=== PATIENT | female | born 1940 | race Caucasian/White ===

== ENCOUNTER → 2016-07-16 | Outpatient (CLI) | payer MEDICARE, OTHER ==
[2014-09-17 14:11] VITALS: BP 148/68
[~2016-07-16] MED LIST: ASPI-482 PO; CARV12.52 PO; CARV25TA2 PO; CEFU500T46 PO; EZET10TA18 PO; LIDO700A4 TP; LISI-334 PO; METR250T PO; MULT-208 PO; OMEP20CA5 PO; PARO20TA99 PO; POTA10TA31 PO; TORS20TA2 PO; UBID100T5 PO
[2016-07-16 09:48] LABS: CALCIUM 9.3 mg/dL (8.5-10.1); CREATININE 0.9 mg/dL (0.6-1.0); GFR 60.7; POTASSIUM 4.5 mmol/L (3.5-5.1)
[2016-07-16 09:49] LABS: MAGNESIUM 1.5 mg/dL (1.8-2.4)
== END | disposition home or self-care (01) ==
LOC: LAB 09:06
PROVIDERS: ATTEND Internal Medicine Cardiovascular Disease
DX: I49.3 Ventricular premature depolarization (principal); E78.5 Hyperlipidemia, unspecified
CPT/HCPCS: 36415; 80048; 83735

== ENCOUNTER → 2017-01-21 | Outpatient (CLI) | payer MEDICARE, OTHER ==
[2014-09-17 14:11] VITALS: BP 148/68
[2017-01-21 10:45] LABS: GFR 53.8; MAGNESIUM 1.6 mg/dL (1.8-2.4); POTASSIUM 4.3 mmol/L (3.5-5.1)
== END | disposition home or self-care (01) ==
LOC: LAB 08:58
PROVIDERS: ATTEND Internal Medicine Cardiovascular Disease
DX: I49.3 Ventricular premature depolarization (principal); I13.0 Hypertensive heart and chronic kidney disease with heart failure and stage 1 through stage 4 chronic kidney disease, or unspecified chronic kidney disease; N18.9 Chronic kidney disease, unspecified; I50.9 Heart failure, unspecified
CPT/HCPCS: 36415; 80048; 83735

== ENCOUNTER → 2017-01-28 | Outpatient (CLI) | payer MEDICARE, OTHER ==
[2014-09-17 14:11] VITALS: BP 148/68
[2017-01-28 12:08] LABS: CALCIUM 8.7 mg/dL (8.5-10.1); CREATININE 0.9 mg/dL (0.6-1.0); GFR 60.7; MAGNESIUM 1.3 mg/dL (1.8-2.4); POTASSIUM 4.4 mmol/L (3.5-5.1)
== END | disposition home or self-care (01) ==
LOC: LAB 11:11
PROVIDERS: ATTEND Internal Medicine
DX: K52.9 Noninfective gastroenteritis and colitis, unspecified (principal); I49.3 Ventricular premature depolarization; I10 Essential (primary) hypertension
CPT/HCPCS: 36415; 80048; 83735

== ENCOUNTER 2017-10-10 11:06 | Emergency (ER) | payer MEDICARE, OTHER ==
[~2017-10-10] VITALS: Ht 162.6 cm; Wt 81.6 kg
[2017-10-10] MEDS ORDERED: BETA15CR5 TP (11:28)
[2017-10-10] MEDS ORDERED: HYDR25TA PO (11:28)
[2017-10-10] MEDS ORDERED: METH4TAB2 PO (11:28)
--- NOTE | 2017-10-10 11:28 | PHYS DOC ---
Past History Past Medical History: GERD, High Cholesterol, Heart Disease, Hypertension, Renal Failure Past Surgical History: Appendectomy, Cholecystectomy, Hysterectomy Smoking: Non-smoker Alcohol Use: None Drug Use: None Adult General Chief Complaint Chief Complaint: Rash HPI HPI Patient is a 77 year old [sex] who presents with draining of rash. Patient states she has had pruritic rash on her face and earache and arms and under breast for the last 8 days that does not getting better with using over-the- counter medication. She denies fever and chills, shortness of breath, history of the same rash, starting new medication. Patient had the same rash on his upper extremity and both of them worked at their yard 8 days ago. Review of Systems Review of Systems Constitutional: Denies fever or chills [] Eyes: Denies change in visual acuity, redness, or eye pain [] HENT: Denies nasal congestion or sore throat [] Respiratory: Denies cough or shortness of breath [] Cardiovascular: No additional information not addressed in HPI [] GI: Denies abdominal pain, nausea, vomiting, bloody stools or diarrhea [] : Denies dysuria or hematuria [] Musculoskeletal: Denies back pain or joint pain [] Integument: Denies skin lesions, reports rash with itching [] Neurologic: Denies headache, focal weakness or sensory changes [] Endocrine: Denies polyuria or polydipsia [] All other systems were reviewed and found to be within normal limits, except as documented in this note. Allergies Allergies Allergies Coded Allergies Type Severity Reaction Last Updated Verified Smucbrz-Lle-Hyn Reductase Inhibitor Allergy Intermediate 09/12/14 Yes Sulfa (Sulfonamide Antibiotics) Allergy Mild hives 09/11/14 Yes Physical Exam Physical Exam Constitutional: Well developed, well nourished, mild distress, non-toxic appearance. [] HENT: Normocephalic, atraumatic, bilateral external ears normal, oropharynx moist, no oral exudates, nose normal. [] Eyes: PERRLA, EOMI, conjunctiva normal, no discharge. [] Neck: Normal range of motion, no tenderness, supple, no stridor. [] Cardiovascular:Heart rate regular rhythm, no murmur [] Lungs & Thorax: Bilateral breath sounds clear to auscultation [] Skin: Warm, dry. Erythematous rash in right side of face and neck and bilateral arms with 2 small spots under bilateral breast Back: No tenderness, no CVA tenderness. [] Extremities: No tenderness, no cyanosis, no clubbing, ROM intact, no edema. [] Neurologic: Alert and oriented X 3, normal motor function, normal sensory function, no focal deficits noted. [] Psychologic: Affect normal, judgement normal, mood normal. [] EKG EKG [] Radiology/Procedures Radiology/Procedures [] Course & Med Decision Making Course & Med Decision Making Evaluation of patient in ER showed 77-year-old female patient with contact dermatitis rash on her face, neck, upper extremities and trunk for 8 days after working at her yard. Patient treated with Solu-Medrol in ER and prescription for betamethasone ointment, Medrol Dosepak and hydroxyzine was given. Dragon Disclaimer Dragon Disclaimer This electronic medical record was generated, in whole or in part, using a voice recognition dictation system. Departure Departure: Impression: Primary Impression: Contact dermatitis due to poison violette Disposition: HOME, SELF-CARE (at 1125) Condition: STABLE Referrals: ANGELA VITALE (PCP) Patient Instructions: Poison Violette Additional Instructions: Follow-up with your primary care physician in 3-5 days Return to ER if not getting better Scripts Betamethasone Dipropionate (BETAMETHASONE DIPROPIONATE) 15 Gm Cream..g. 1 SURINDER TP BID, #45 GM 1 Refill Prov: OZZY VIVAS MD 10/10/17 Hydroxyzine Hcl (HYDROXYZINE HCL) 25 Mg Tablet 1 TAB PO TID PRN for ITCHING, #30 TAB Prov: OZZY VIVAS MD 10/10/17 Methylprednisolone (MEDROL) 4 Mg Tab.ds.pk 1 PKG PO UD, #1 PKG Prov: OZZY VIVAS MD 10/10/17 OZZY VIVAS MD Oct 10, 2017 11:28
[2017-10-10 11:50] VITALS: BP 110/48
[2017-10-10] MEDS ORDERED: methylPREDNISolone SOD SUCC PF 125 MG/2 ML VIAL. IM ONE (12:00)
== END 2017-10-10 11:50 | disposition home or self-care (01) ==
LOC: ER 11:06
DX: L25.5 Unspecified contact dermatitis due to plants, except food (principal); K21.9 Gastro-esophageal reflux disease without esophagitis; E78.00 Pure hypercholesterolemia, unspecified; I11.9 Hypertensive heart disease without heart failure; N19 Unspecified kidney failure; Z88.2 Allergy status to sulfonamides; Z88.8 Allergy status to other drugs, medicaments and biological substances
CPT/HCPCS: 96372; 99283; J2930

== ENCOUNTER → 2017-12-02 | Outpatient (CLI) | payer MEDICARE, OTHER ==
[~2017-12-02] MED LIST changes: +BETA15CR5 TP; +HYDR25TA PO; +METH4TAB2 PO
[2017-12-02 11:31] LABS: BASO # 0.1 x10^3/uL (0.0-0.2); BASO % 1 % (0-3); EOS # 0.2 x10^3/uL (0.0-0.7); EOS % 3 % (0-3); HEMATOCRIT 36.8 % (36.0-47.0); HEMOGLOBIN 12.3 g/dL (12.0-15.5); LYMPH # 1.8 x10^3/uL (1.0-4.8); LYMPH % 30 % (24-48); MEAN CORPUSCULAR HEMOGLOBIN 29 pg (25-35); MEAN CORPUSCULAR HGB CONC 34 g/dL (31-37); MEAN CORPUSCULAR VOLUME 85 fL (79-100); MONO # 0.5 x10^3/uL (0.0-1.1); MONO % 9 % (0-9); NEUT # 3.4 x10^3uL (1.8-7.7); NEUT % 57 % (31-73); PLATELET COUNT 342 x10^3/uL (140-400); RED BLOOD COUNT 4.32 x10^6/uL (3.50-5.40); RED CELL DISTRIBUTION WIDTH 15.7 % (11.5-14.5)
== END | disposition home or self-care (01) ==
LOC: LAB 10:49
PROVIDERS: ATTEND Internal Medicine
DX: D50.8 Other iron deficiency anemias (principal)
CPT/HCPCS: 36415; 85025

== ENCOUNTER → 2018-01-06 | Outpatient (CLI) | payer MEDICARE, OTHER ==
[2018-01-06 15:13] LABS: GFR 53.6; POTASSIUM 4.3 mmol/L (3.5-5.1)
== END | disposition home or self-care (01) ==
LOC: LAB 14:16
PROVIDERS: ATTEND Internal Medicine
DX: I13.0 Hypertensive heart and chronic kidney disease with heart failure and stage 1 through stage 4 chronic kidney disease, or unspecified chronic kidney disease (principal); I50.9 Heart failure, unspecified; N18.9 Chronic kidney disease, unspecified
CPT/HCPCS: 36415; 80048

== ENCOUNTER 2019-06-04 09:42 | Emergency (ER) | payer MEDICARE, OTHER ==
[~2019-06-04] VITALS: Ht 162.6 cm; Wt 84.5 kg
[~2019-06-04 09:42] MED LIST changes: -CARV12.52 PO; +CARV12.547 PO; -EZET10TA18 PO; +EZET10TA20 PO; +POTA10TA12 PO; -POTA10TA31 PO
[2019-06-04] MEDS ORDERED: ALBUTEROL SULFATE 8GM INHALER. ONE (10:03)
[2019-06-04] MEDS ORDERED: predniSONE 10 MG TABLET PO ONE (10:15)
--- NOTE | 2019-06-04 10:38 | RAD ---
Single AP view of the chest. Comparison: 04/19/2016. Indication: Shortness of air Findings: Interval placement of a neurostimulator device. The heart is at the upper limits of normal. There is no pneumothorax or effusion. No air space or interstitial disease. Impression: 1. No acute cardiopulmonary process. Electronically signed by: Brad Sam MD (06/04/2019 10:35 AM) [id number]
[2019-06-04 11:14] LABS: BASO % 1 % (0-3); CALCIUM 9.5 mg/dL (8.5-10.1); CREATININE 0.9 mg/dL (0.6-1.0); EOS # 0.7 x10^3/uL (0.0-0.7); EOS % 11 % (0-3); GFR 60.2; HEMATOCRIT 37.5 % (36.0-47.0); HEMOGLOBIN 12.7 g/dL (12.0-15.5); LYMPH # 1.7 x10^3/uL (1.0-4.8); LYMPH % 26 % (24-48); MEAN CORPUSCULAR HEMOGLOBIN 32 pg (25-35); MEAN CORPUSCULAR HGB CONC 34 g/dL (31-37); MEAN CORPUSCULAR VOLUME 93 fL (79-100); MONO # 0.7 x10^3/uL (0.0-1.1); MONO % 11 % (0-9); NEUT # 3.3 x10^3uL (1.8-7.7); NEUT % 52 % (31-73); PLATELET COUNT 247 x10^3/uL (140-400); POTASSIUM 4.2 mmol/L (3.5-5.1); RED BLOOD COUNT 4.03 x10^6/uL (3.50-5.40); WHITE BLOOD COUNT 6.4 x10^3/uL (4.0-11.0)
--- NOTE | 2019-06-04 11:14 | EKG ---
[address] [address] Test Date: 2019-06-04 Test Time: 11:01:24 Pat Name: SARAH COLE Department: Room: Gender: F International Account Manager: : 1940 Requested By: REBEKAH ELIZONDO Order Number: [id number] Reading MD: Reyes Cullen Measurements Intervals [place] Rate: 59 P: 90 LA: 260 QRS: 23 QRSD: 84 T: 17 QT: 444 QTc: 444 Interpretive Statements SINUS RHYTHM PROLONGED LA INTERVAL Electronically Signed On 06-05-2019 7:54:31 CDT by Reyes Cullen
[2019-06-04 11:26] VITALS: BP 152/85
[2019-06-04 11:27] LABS: ALBUMIN 3.7 g/dL (3.4-5.0); TOTAL BILIRUBIN 0.6 mg/dL (0.2-1.0); TOTAL PROTEIN 7.5 g/dL (6.4-8.2)
[2019-06-04] MEDS ORDERED: FEXO60TA25 PO (11:52)
[2019-06-04] MEDS ORDERED: ALBU2.5V8 INH (11:52)
[2019-06-04] MEDS ORDERED: PRED50TA PO (11:52)
--- NOTE | 2019-06-04 11:52 | PHYS DOC ---
Past History Past Medical History: Anxiety, Asthma, COPD, Depression Past Surgical History: No Surgical History Smoking: Non-smoker Alcohol Use: None Drug Use: None Adult General Chief Complaint Chief Complaint: SHORTNESS OF BREATH HPI HPI Patient is a 79-year-old female with history of asthma, COPD, seasonal allergies who presents with rhinorrhea, shortness of breath with wheezing and productive cough with scant clear sputum production. Symptom onset was 4 days ago and has gradually progress. No fevers chills, sweats. No chest tightness, pain, denies increased leg pain or swelling. Patient states symptoms occurred while sitting outdoors. Patient has used home albuterol inhaler with limited relief. No history of coronary disease. Denies known infectious exposure. No other acute symptoms or complaints.[] Review of Systems Review of Systems ROS as per HPI. All other systems were reviewed and found to be within normal limits, except as documented in this note. Current Medications Current Medications Current Medications Medications (Trade) Dose Ordered Sig/Gilma Start Time Stop Time Status Last Admin Dose Admin Albuterol Sulfate (Ventolin Hfa Inhaler) 60 puff STK-MED ONCE 06/04/19 10:03 06/04/19 10:04 DC Prednisone (Prednisone) 50 mg 1X ONCE 06/04/19 10:15 06/04/19 10:16 DC 06/04/19 10:15 50 MG Allergies Allergies Allergies Coded Allergies Type Severity Reaction Last Updated Verified Gbwcfbp-Rtm-Tmn Reductase Inhibitor Allergy Intermediate 09/12/14 Yes Sulfa (Sulfonamide Antibiotics) Allergy Mild hives 09/11/14 Yes Physical Exam Physical Exam Constitutional: Well developed, well nourished, no acute distress, non-toxic appearance. [] HENT: Normocephalic, atraumatic, bilateral external ears normal, nose normal. [] Eyes: PERRLA, EOMI, conjunctiva normal, no discharge. [] Neck: Normal range of motion, no tenderness. [] Cardiovascular:Heart rate regular rhythm, no murmur [] Lungs & Thorax: Respirations nonlabored, mildly diminished coarse breath sounds bilaterally with expiratory wheezes[] Abdomen: Bowel sounds normal, soft, no tenderness. [] Skin: Warm, dry, no erythema, no rash. [] Back: No tenderness. [] Extremities: No tenderness, no cyanosis, no clubbing, ROM intact, no edema. [] Neurologic: Alert and oriented X 3, normal motor function, normal sensory function, no focal deficits noted. [] Psychologic: Affect normal, judgement normal, mood normal. [] Current Patient Data Vital Signs Vital Signs Date Time Temp Pulse Resp B/P (MAP) Pulse Ox O2 Delivery O2 Flow Rate FiO2 06/04/19 11:26 98.0 62 20 152/85 (107) 95 Room Air Lab Results Laboratory Tests Test 06/04/19 10:50 White Blood Count 6.4 x10^3/uL (4.0-11.0) Red Blood Count 4.03 x10^6/uL (3.50-5.40) Hemoglobin 12.7 g/dL (12.0-15.5) Hematocrit 37.5 % (36.0-47.0) Mean Corpuscular Volume 93 fL (79-100) Mean Corpuscular Hemoglobin 32 pg (25-35) Mean Corpuscular Hemoglobin Concent 34 g/dL (31-37) Red Cell Distribution Width 13.0 % (11.5-14.5) Platelet Count 247 x10^3/uL (140-400) Neutrophils (%) (Auto) 52 % (31-73) Lymphocytes (%) (Auto) 26 % (24-48) Monocytes (%) (Auto) 11 % (0-9) H Eosinophils (%) (Auto) 11 % (0-3) H Basophils (%) (Auto) 1 % (0-3) Neutrophils # (Auto) 3.3 x10^3uL (1.8-7.7) Lymphocytes # (Auto) 1.7 x10^3/uL (1.0-4.8) Monocytes # (Auto) 0.7 x10^3/uL (0.0-1.1) Eosinophils # (Auto) 0.7 x10^3/uL (0.0-0.7) Basophils # (Auto) 0.0 x10^3/uL (0.0-0.2) Sodium Level 136 mmol/L (136-145) Potassium Level 4.2 mmol/L (3.5-5.1) Chloride Level 99 mmol/L (98-107) Carbon Dioxide Level 32 mmol/L (21-32) Anion Gap 5 (6-14) L Blood Urea Nitrogen 19 mg/dL (7-20) Creatinine 0.9 mg/dL (0.6-1.0) Estimated GFR (Cockcroft-Gault) 60.2 BUN/Creatinine Ratio 21 (6-20) H Glucose Level 96 mg/dL (70-99) Calcium Level 9.5 mg/dL (8.5-10.1) Total Bilirubin 0.6 mg/dL (0.2-1.0) Aspartate Amino Transferase (AST) 17 U/L (15-37) Alanine Aminotransferase (ALT) 17 U/L (14-59) Alkaline Phosphatase 61 U/L (46-116) Troponin I Quantitative < 0.017 ng/mL (0-0.055) PD-Akd-D-Type Natriuretic Peptide 361 pg/mL (0-449) Total Protein 7.5 g/dL (6.4-8.2) Albumin 3.7 g/dL (3.4-5.0) Albumin/Globulin Ratio 1.0 (1.0-1.7) EKG EKG [] Radiology/Procedures Radiology/Procedures CXR: NAD per radiology report[] Course & Med Decision Making Course & Med Decision Making Pertinent Labs and Imaging studies reviewed. (See chart for details) [Symptoms consistent with seasonal allergies with midl allergic asthma. Prednisone, Proventil breathing treatment given with some improvement. Chest x- ray EKG lab review ED an reassuring. We'll continue supportive treatment with PCP follow-up. Return precautions reviewed.] Dragon Disclaimer Dragon Disclaimer This electronic medical record was generated, in whole or in part, using a voice recognition dictation system. Departure Departure: Impression: Primary Impression: Seasonal allergies Additional Impression: Asthma Disposition: 01 HOME, SELF-CARE Condition: STABLE Referrals: ANGELA VITALE (PCP) Patient Instructions: Allergic Rhinitis, Asthma, Adult, Jryy-uj-Dake Additional Instructions: Please take newly prescribed medications as directed and continue home inhaler use. Follow-up with your PCP in 3-5 days for reevaluation. Return to the ED if new or worsening symptoms Scripts Albuterol Sulfate (PROVENTIL HFA INHALER) 6.7 Gm Hfa.aer.ad 1 PUFF INH PRN Q4HRS PRN for FOR ASTHMA, #1 INHALER 0 Refills Prov: REBEKAH ELIZONDO DO 06/04/19 Fexofenadine Hcl (ASHLEY ALLERGY) 60 Mg Tablet 1 TAB PO BID for allergy symptoms for 30 Days, #30 TAB 0 Refills Prov: REBEKAH ELIZONDO DO 06/04/19 Prednisone (PREDNISONE) 50 Mg Tablet 1 TAB PO DAILY, #5 TAB Prov: REBEKAH ELIZONDO DO 06/04/19 Problem Qualifiers REBEKAH ELIZONDO DO Jun 04, 2019 11:52
== END 2019-06-04 12:09 | disposition home or self-care (01) ==
LOC: ER 09:42
DX: J30.2 Other seasonal allergic rhinitis (principal); J44.9 Chronic obstructive pulmonary disease, unspecified; Z88.2 Allergy status to sulfonamides; Z88.8 Allergy status to other drugs, medicaments and biological substances
CPT/HCPCS: 36415; 71045; 80053; 83880; 84484; 85025; 93005; 99285; J7512; J7613

== ENCOUNTER → 2021-06-03 | Outpatient (CLI) | payer MEDICARE, OTHER ==
[~2021-06-03] MED LIST changes: +ALBU2.5V8 INH; +FEXO60TA25 PO; -LISI-334 PO; +LISI20TA18 PO; +PRED50TA PO
[2021-06-03 11:17] LABS: CALCIUM 9.2 mg/dL (8.5-10.1); GFR 53.1; POTASSIUM 4.8 mmol/L (3.5-5.1)
== END ==
LOC: LAB 10:44
PROVIDERS: ATTEND Internal Medicine
DX: I10 Essential (primary) hypertension (principal)
CPT/HCPCS: 36415; 80048